=== PATIENT | male | born 1960 | race Caucasian/White ===

== ENCOUNTER 2017-09-22 10:23 | Emergency (ER) | payer OTHER ==
[2017-09-22] MEDS: KETOROLAC 60 MG INJ IM (11:30)
[2017-09-22] MEDS: DEXAMETHASONE 10 MG/ML 1 ML INJ IM (11:33)
== END 2017-09-22 11:43 | disposition home or self-care (01) ==
LOC: FTE 10:23
DX: M54.9 Dorsalgia, unspecified (principal); I10 Essential (primary) hypertension
CPT/HCPCS: 96372; 99284-25